=== PATIENT | male | born 1995 | race American Indian/Alaskan Native ===

== ENCOUNTER 2021-01-09 18:44 | Emergency (ER) | payer OTHER, SELFPAY ==
[2021-01-09 23:14] LABS: Basophils # (Auto) 0.1 K/mm3 (0.0-0.1); Basophils % (Auto) 1.4 % (0.0-1.8); Eosinophils # (Auto) 0.1 K/mm3 (0.0-0.4); Eosinophils % (Auto) 1.4 % (0.0-4.3); Hematocrit 39.2 % (35.5-45.6); Hemoglobin 12.6 gm/dl (11.8-15.2); Lymphocytes # (Auto) 1.5 K/mm3 (1.2-5.4); Lymphocytes % (Auto) 33.8 % (13.4-35.0); Mean Corpuscular HGB Conc 32 % (32-34); Mean Corpuscular Volume 85 fl (84-94); Monocytes # (Auto) 0.5 K/mm3 (0.0-0.8); Monocytes % (Auto) 12.4 % (0.0-7.3); Platelet Count 228 K/mm3 (140-440); Red Blood Count 4.64 M/mm3 (3.65-5.03); Red Cell Distribution Width 15.1 % (13.2-15.2)
[2021-01-09 23:31] LABS: BUN/Creatinine Ratio 8; Blood Urea Nitrogen 8 mg/dL (9-20); Calcium 8.9 mg/dL (8.4-10.2); Hemolysis Index 6
[2021-01-10 00:10] LABS: Bilirubin,Urine NEG (Negative); Blood,Urine NEG (Negative); Color,Urine Straw (Yellow); Protein,Urine <15 mg/dL mg/dL (Negative); Urobilinogen,Urine < 2.0 mg/dL (<2.0); WBC,Urine < 1.0 /HPF (0.0-6.0)
[2021-01-10 00:13] LABS: RBC,Urine < 1.0 /HPF (0.0-6.0)
[2021-01-10 00:16] LABS: Amphetamine Screen,Urine PRESUMPTIVE NEGATIVE; Benzodiazepines Screen,Urine PRESUMPTIVE NEGATIVE; Cannabinoid Screen,Urine PRESUMPTIVE POSITIVE; Cocaine Screen,Urine PRESUMPTIVE NEGATIVE; Methadone Screen,Urine PRESUMPTIVE NEGATIVE; Opiate Screen,Urine PRESUMPTIVE NEGATIVE
--- NOTE | 2021-01-10 01:05 | Emergency Department Report ---
ED Psych HPI - General Chief Complaint: Psych Stated Complaint: EVALUATION Time Seen by Provider: 01/10/21 00:21 Source: patient Mode of arrival: Ambulatory - History of Present Illness Initial Comments: Patient is 25 years old male with unknown past medical or psychiatric history. Patient presented to the ER for mental health evaluation. Patient said that he is hearing voices. When I asked him what the voices asking her to do, patient replied that I asked me to kill you. Patient is doing a bizarre movement stating that his brain. Patient avoid looking at the examiner. Patient is in acute psychosis. MD Complaint: other Associated Symptoms: denies other symptoms Treatments Prior to Arrival: none - Related Data Home Medications Medication Instructions Recorded Confirmed Last Taken No Known Home Medications [No 01/11/21 01/11/21 Unknown Reported Home Medications] Allergies Allergy/AdvReac Type Severity Reaction Status Date / Time No Known Allergies Allergy Unverified 01/09/21 22:30 ED Review of Systems ROS: Stated complaint: EVALUATION Other details as noted in HPI Comment: All other systems reviewed and negative Constitutional: denies: chills, fever Respiratory: denies: cough, shortness of breath Gastrointestinal: denies: abdominal pain, nausea, vomiting Musculoskeletal: denies: back pain Neurological: denies: headache, weakness, numbness, paresthesias, confusion Psychiatric: auditory hallucinations. denies: homicidal thoughts, suicidal thoughts ED Past Medical Hx - Past Medical History Hx Psychiatric Treatment: Yes (schizophrenia) - Social History Smoking Status: Never Smoker - Medications Home Medications: Home Medications Medication Instructions Recorded Confirmed Last Taken Type No Known Home Medications [No 01/11/21 01/11/21 Unknown History Reported Home Medications] ED Physical Exam - General Limitations: No Limitations General appearance: alert, in no apparent distress - Head Head exam: Present: atraumatic, normocephalic, normal inspection - Eye Eye exam: Present: normal appearance - ENT ENT exam: Present: normal exam, normal orophraynx, mucous membranes moist - Neck Neck exam: Present: normal inspection, full ROM. Absent: tenderness, meningis mus - Respiratory Respiratory exam: Present: normal lung sounds bilaterally - Cardiovascular Cardiovascular Exam: Present: regular rate, normal rhythm, normal heart sounds - GI/Abdominal GI/Abdominal exam: Present: soft, normal bowel sounds. Absent: distended, tenderness, guarding, rebound, rigid, organomegaly, mass, bruit, pulsatile mass, hernia - Extremities Exam Extremities exam: Present: normal inspection, full ROM, normal capillary refill - Back Exam Back exam: Present: normal inspection, full ROM. Absent: CVA tenderness (R), CVA tenderness (L) - Neurological Exam Neurological exam: Present: alert, oriented X3, CN II-XII intact, normal gait, reflexes normal. Absent: motor sensory deficit - Psychiatric Psychiatric exam: Present: normal mood - Skin Skin exam: Present: warm, intact, normal color ED Course Vital Signs 01/09/21 01/10/21 01/10/21 22:31 02:11 02:59 Temperature 99.1 F 98.8 F Pulse Rate 98 H 104 H Respiratory 16 18 18 Rate Blood Pressure 117/67 Blood Pressure 108/56 [Left] O2 Sat by Pulse 98 98 98 Oximetry 01/10/21 01/11/21 01/11/21 09:47 05:34 07:44 Temperature 98.6 F 98.3 F Pulse Rate 80 80 Respiratory 20 18 20 Rate Blood Pressure Blood Pressure 129/82 120/73 [Left] O2 Sat by Pulse 97 98 98 Oximetry 01/11/21 01/11/21 01/12/21 08:13 19:50 08:14 Temperature 98.0 F 97.8 F Pulse Rate 70 67 Respiratory 20 18 20 Rate Blood Pressure Blood Pressure 111/70 114/59 [Left] O2 Sat by Pulse 98 100 98 Oximetry ED Medical Decision Making - Lab Data Result diagrams: 01/09/21 22:40 01/09/21 22:40 Critical care attestation.: If time is entered above; I have spent that time in minutes in the direct care of this critically ill patient, excluding procedure time. ED Disposition Clinical Impression: Acute psychosis Disposition: DC/TX-70 ANOTHER TYPE HLTHCARE Is pt being admited?: No Condition: Stable Referrals: PRIMARY CARE, [Primary Care Provider] - 3-5 Days
[2021-01-10] MEDS ORDERED: ZIPRASIDONE MESYLATE 20 MG VIAL IM ONE (01:42)
[2021-01-10] MEDS ORDERED: WATER FOR INJ Sterile (PF) 10 ML ONE (01:55)
[2021-01-10] MEDS ORDERED: diphenhydrAMINE 25 MG CAP PO PRN (11:22)
[2021-01-10] MEDS ORDERED: LORazepam 2 MG/ML VIAL IM PRN (11:22)
[2021-01-10] MEDS ORDERED: ACETAMINOPHEN 325 MG TAB PO PRN (11:22)
--- NOTE | 2021-01-10 11:24 | Event Note ---
Date: 01/10/21 The patient was evaluated in the emergency department for symptoms described in the history of present illness. He/she was evaluated in the context of the global COVID-19 pandemic, which necessitated consideration that the patient might be at risk for infection with the virus that causes COVID-19. Institutional protocols and algorithms that pertain to the evaluation of patients at risk for COVID-19 are in a state of rapid change based on information released by regulatory bodies including the CDC and federal and state organizations. These policies and algorithms were followed during the patient's care in the emergency department. Please note that these policies, procedures and recommendations changed on a rapid basis. Laboratory studies, vital signs, nursing and ER documentation reviewed and appreciated. Patient standing comfortably in room 13, in no acute distress. Awaiting psychiatric recommendations. Vital Signs 01/09/21 01/10/21 01/10/21 22:31 02:11 02:59 Temperature 99.1 F 98.8 F Pulse Rate 98 H 104 H Respiratory 16 18 18 Rate Blood Pressure 117/67 Blood Pressure 108/56 [Left] O2 Sat by Pulse 98 98 98 Oximetry 01/10/21 09:47 Temperature 98.6 F Pulse Rate 80 Respiratory 20 Rate Blood Pressure Blood Pressure 129/82 [Left] O2 Sat by Pulse 97 Oximetry Lab Results 01/09/21 01/09/21 01/09/21 Range/Units 22:40 22:40 22:40 WBC (4.5-11.0) K/mm3 RBC (3.65-5.03) M/mm3 Hgb (11.8-15.2) gm/dl Hct (35.5-45.6) % MCV (84-94) fl MCH (28-32) pg MCHC (32-34) % RDW (13.2-15.2) % Plt Count (140-440) K/mm3 Lymph % (Auto) (13.4-35.0) % [place] % (Auto) (0.0-7.3) % Eos % (Auto) (0.0-4.3) % Baso % (Auto) (0.0-1.8) % Lymph # (Auto) (1.2-5.4) K/mm3 [place] # (Auto) (0.0-0.8) K/mm3 Eos # (Auto) (0.0-0.4) K/mm3 Baso # (Auto) (0.0-0.1) K/mm3 Seg Neutrophils % (40.0-70.0) % Seg Neutrophils # (1.8-7.7) K/mm3 Sodium 138 (137-145) mmol/L Potassium 4.2 (3.6-5.0) mmol/L Chloride 101.7 (98-107) mmol/L Carbon Dioxide 26 (22-30) mmol/L Anion Gap 15 mmol/L BUN 8 L (9-20) mg/dL Creatinine 1.0 (0.8-1.3) mg/dL Estimated GFR > 60 ml/min BUN/Creatinine Ratio 8 % Glucose 96 (75-100) mg/dL Calcium 8.9 (8.4-10.2) mg/dL Urine Color (Yellow) Urine Turbidity (Clear) Urine pH (5.0-7.0) Ur Specific [place] (1.003-1.030) Urine Protein (Negative) mg/dL Urine Glucose (UA) (Negative) mg/dL Urine Ketones (Negative) mg/dL Urine Blood (Negative) Urine Nitrite (Negative) Urine Bilirubin (Negative) Urine Urobilinogen (<2.0) mg/dL Ur Leukocyte Esterase (Negative) Urine WBC (Auto) (0.0-6.0) /HPF Urine RBC (Auto) (0.0-6.0) /HPF U Epithel Cells (Auto) (0-13.0) /HPF Salicylates < 0.3 L (2.8-20.0) mg/dL Urine Opiates Screen Urine Methadone Screen Acetaminophen 5.0 L (10.0-30.0) ug/mL Ur Barbiturates Screen Ur Phencyclidine Scrn Ur Amphetamines Screen U Benzodiazepines Scrn Urine Cocaine Screen U Marijuana (THC) Screen Drugs of Abuse Note Plasma/Serum Alcohol (0-0.07) % 01/09/21 01/09/21 01/09/21 Range/Units 22:40 22:40 Unknown WBC 4.4 L (4.5-11.0) K/mm3 RBC 4.64 (3.65-5.03) M/mm3 Hgb 12.6 (11.8-15.2) gm/dl Hct 39.2 (35.5-45.6) % MCV 85 (84-94) fl MCH 27 L (28-32) pg MCHC 32 (32-34) % RDW 15.1 (13.2-15.2) % Plt Count 228 (140-440) K/mm3 Lymph % (Auto) 33.8 (13.4-35.0) % Stan[place] % (Auto) 12.4 H (0.0-7.3) % Eos % (Auto) 1.4 (0.0-4.3) % Baso % (Auto) 1.4 (0.0-1.8) % Lymph # (Auto) 1.5 (1.2-5.4) K/mm3 Stan[place] # (Auto) 0.5 (0.0-0.8) K/mm3 Eos # (Auto) 0.1 (0.0-0.4) K/mm3 Baso # (Auto) 0.1 (0.0-0.1) K/mm3 Seg Neutrophils % 51.0 (40.0-70.0) % Seg Neutrophils # 2.2 (1.8-7.7) K/mm3 Sodium (137-145) mmol/L Potassium (3.6-5.0) mmol/L Chloride (98-107) mmol/L Carbon Dioxide (22-30) mmol/L Anion Gap mmol/L BUN (9-20) mg/dL Creatinine (0.8-1.3) mg/dL Estimated GFR ml/min BUN/Creatinine Ratio % Glucose (75-100) mg/dL Calcium (8.4-10.2) mg/dL Urine Color Straw (Yellow) Urine Turbidity Clear (Clear) Urine pH 7.0 (5.0-7.0) Ur Specific [place] 1.006 (1.003-1.030) Urine Protein <15 mg/dl (Negative) mg/dL Urine Glucose (UA) Neg (Negative) mg/dL Urine Ketones Neg (Negative) mg/dL Urine Blood Neg (Negative) Urine Nitrite Neg (Negative) Urine Bilirubin Neg (Negative) Urine Urobilinogen < 2.0 (<2.0) mg/dL Ur Leukocyte Esterase Neg (Negative) Urine WBC (Auto) < 1.0 (0.0-6.0) /HPF Urine RBC (Auto) < 1.0 (0.0-6.0) /HPF U Epithel Cells (Auto) < 1.0 (0-13.0) /HPF Salicylates (2.8-20.0) mg/dL Urine Opiates Screen Urine Methadone Screen Acetaminophen (10.0-30.0) ug/mL Ur Barbiturates Screen Ur Phencyclidine Scrn Ur Amphetamines Screen U Benzodiazepines Scrn Urine Cocaine Screen U Marijuana (THC) Screen Drugs of Abuse Note Plasma/Serum Alcohol < 0.01 (0-0.07) % 01/09/21 Range/Units Unknown WBC (4.5-11.0) K/mm3 RBC (3.65-5.03) M/mm3 Hgb (11.8-15.2) gm/dl Hct (35.5-45.6) % MCV (84-94) fl MCH (28-32) pg MCHC (32-34) % RDW (13.2-15.2) % Plt Count (140-440) K/mm3 Lymph % (Auto) (13.4-35.0) % Stan[place] % (Auto) (0.0-7.3) % Eos % (Auto) (0.0-4.3) % Baso % (Auto) (0.0-1.8) % Lymph # (Auto) (1.2-5.4) K/mm3 [place] # (Auto) (0.0-0.8) K/mm3 Eos # (Auto) (0.0-0.4) K/mm3 Baso # (Auto) (0.0-0.1) K/mm3 Seg Neutrophils % (40.0-70.0) % Seg Neutrophils # (1.8-7.7) K/mm3 Sodium (137-145) mmol/L Potassium (3.6-5.0) mmol/L Chloride (98-107) mmol/L Carbon Dioxide (22-30) mmol/L Anion Gap mmol/L BUN (9-20) mg/dL Creatinine (0.8-1.3) mg/dL Estimated GFR ml/min BUN/Creatinine Ratio % Glucose (75-100) mg/dL Calcium (8.4-10.2) mg/dL Urine Color (Yellow) Urine Turbidity (Clear) Urine pH (5.0-7.0) Ur Specific [place] (1.003-1.030) Urine Protein (Negative) mg/dL Urine Glucose (UA) (Negative) mg/dL Urine Ketones (Negative) mg/dL Urine Blood (Negative) Urine Nitrite (Negative) Urine Bilirubin (Negative) Urine Urobilinogen (<2.0) mg/dL Ur Leukocyte Esterase (Negative) Urine WBC (Auto) (0.0-6.0) /HPF Urine RBC (Auto) (0.0-6.0) /HPF U Epithel Cells (Auto) (0-13.0) /HPF Salicylates (2.8-20.0) mg/dL Urine Opiates Screen Presumptive negative Urine Methadone Screen Presumptive negative Acetaminophen (10.0-30.0) ug/mL Ur Barbiturates Screen Presumptive negative Ur Phencyclidine Scrn Presumptive negative Ur Amphetamines Screen Presumptive negative U Benzodiazepines Scrn Presumptive negative Urine Cocaine Screen Presumptive negative U Marijuana (THC) Screen Presumptive positive Drugs of Abuse Note Disclamer Plasma/Serum Alcohol (0-0.07) %
--- NOTE | 2021-01-10 11:48 | Consultation ---
History of Present Illness - Reason for Consult Consult date: 01/10/21 Reason for consult: MHE Requesting physician: DAWSON AMARO - History of Present Psychiatric Illness Per ED Provider: Patient is 25 years old male with unknown past medical or psychiatric history. Patient presented to the ER for mental health evaluation. Patient said that he is hearing voices. When I asked him what the voices asking her to do, patient replied that I asked me to kill you. Patient is doing a bizarre movement stating that his brain. Patient avoid looking at the examiner. Patient is in acute psychosis. PSYCH HPI Patient is a 25-year-old -[place] male with no known psychiatric history , past medical history who presented to the ED for Medicare after evaluation stating that he is hearing voices. Patient seen in seclusion, due to safety reasons. Patient reported coming here by ambulance because his uncle called them that he is suffering. When patient was asked what he suffered from patient set himself and also you need to know. Patient states that he will be here until his ready to go and that has nothing to do with evaluation. He is denying prior psych history or drug use. PAST PSYCHIATRIC HISTORY Diagnoses:n/a Suicide attempts or Self-harm behavior: n/a Prior psychiatric hospitalizations: n/a Substance Abuse history: n/a Previous psychiatric medications tried: n/a Outpatient treatment: n/a PAST MEDICAL HISTORY: n/a Family Psychiatric History: None reported or documented SOCIAL HISTORY Marital Status: n/a Living Arrangements: homeless Employment Status: unemployed Access to guns/weapons: n/a Education:high school diploma History of Abuse: n/a Legal History: n/a REVIEW OF SYSTEMS ROS cannot be reliably obtained from the patient due to his mental state MENTAL STATUS EXAMINATION General Appearance and Behavior: Age appropriate, good hygiene, not wearing appropriate clothes, good eye contact, cooperative polite with questioning. Cooperation: Participating/engaged Psychomotor Behavior: Psychomotor agitation Mood: Good Affect and affective range: euthymic, euphoric Thought Process:Circumstantial, Illogical, Thought Content: Flight of ideas, Illogical, Grandiose, Speech: pressured, loud volume at times Intellectual Functioning: Average Suicidal Ideation: Denies SI Homicidal Ideation: Denies HIl Impulse Control: Impaired Insight and Judgment: Limited insight and judgment Memory: Normal, Attention: Divided attention impaired Orientation: Alert, oriented, Assessment and Plan - Psychiatric problem (1) Unspecified episodic mood disorder Current Visit: Yes Status: Acute F39 Treatment Plan MEDICATIONS: Risks, benefits and alternatives of medications discussed with the patient, questions answered and consent obtained from patient. PSYCHOTHERAPY: Supportive psychotherapy provided MEDICAL: Per primary team DELIRIUM PRECAUTIONS: Please re-orient patient frequently, keep lights on during the day, and minimize benzodiazepines and opiates as these medications could worsen patient's confusion. STUNT MAN: DISPOSITION: Do Recommend acute inpatient psychiatric hospitalization at this time. Case discussed with Dr. Chamorro who agrees with current disposition LEGAL STATUS: 1013 FOLLOW-UP: Will follow Thank you for the consult. Please contact with any questions and/or concerns. Medications and Allergies Allergies Allergy/AdvReac Type Severity Reaction Status Date / Time No Known Allergies Allergy Unverified 01/09/21 22:30 Active Meds: Active Medications Acetaminophen (Acetaminophen 325 Mg Tab) 650 mg PO Q6HR PRN PRN Reason: PAIN Diphenhydramine HCl (Diphenhydramine 25 Mg Cap) 50 mg PO QHS PRN PRN Reason: Insomnia Lorazepam (Lorazepam 2 Mg/Ml Vial) 2 mg IM Q4HR PRN PRN Reason: Agitation Mental Status Exam - Vital signs Last Vital Signs Temp 98.6 F 01/10/21 09:47 Pulse 80 01/10/21 09:47 Resp 20 01/10/21 09:47 BP 129/82 01/10/21 09:47 Pulse Ox 97 01/10/21 09:47 Results Result Diagrams: 01/09/21 22:40 01/09/21 22:40 Abnormal lab results 01/09/21 01/09/21 01/09/21 Range/Units 22:40 22:40 22:40 WBC (4.5-11.0) K/mm3 MCH (28-32) pg [place] % (Auto) (0.0-7.3) % BUN 8 L (9-20) mg/dL Salicylates < 0.3 L (2.8-20.0) mg/dL Acetaminophen 5.0 L (10.0-30.0) ug/mL 01/09/21 Range/Units 22:40 WBC 4.4 L (4.5-11.0) K/mm3 MCH 27 L (28-32) pg [place] % (Auto) 12.4 H (0.0-7.3) % BUN (9-20) mg/dL Salicylates (2.8-20.0) mg/dL Acetaminophen (10.0-30.0) ug/mL All other labs normal. Assessment and Plan - Psychiatric problem (1) Unspecified episodic mood disorder Current Visit: Yes Status: Acute
--- NOTE | 2021-01-11 18:39 | Event Note ---
S: " I did not get my psych meds." O: Patient is alert oriented x4, vital signs are stable A: Acute psychosis P: Psychiatry team recommended inpatient stabilization, patient is medically clear for psychiatric care. I have reviewed labs obtained. Covid PCR test is negative
[2021-01-12 08:15] VITALS: BP 114/59
--- NOTE | 2021-01-12 10:19 | Progress Note ---
Subjective - Reason for Consult Consult date: 01/12/21 Reason for consult: psychosis - Chief Complaint Chief complaint: The patient was seen today, he is irritable and reluctant to speak with me. He does after several attempts. His thoughts are a little disorganized. He points and tells me that his "psychiatrists are behind the glass." The patient verbalizes being depressed and seeing "devil dogs." When asked was he on any meds, he says "I don't know." He verbalizes using "meth." When asking the patient about SI/HI, he says "I don't know." He then says "a little." PAST PSYCHIATRIC HISTORY Diagnoses:n/a Suicide attempts or Self-harm behavior: n/a Prior psychiatric hospitalizations: n/a Substance Abuse history: n/a Previous psychiatric medications tried: n/a Outpatient treatment: n/a PAST MEDICAL HISTORY: n/a Family Psychiatric History: None reported or documented SOCIAL HISTORY Marital Status: n/a Living Arrangements: homeless Employment Status: unemployed Access to guns/weapons: n/a Education:high school diploma History of Abuse: n/a Legal History: n/a REVIEW OF SYSTEMS ROS cannot be reliably obtained from the patient due to his mental state MENTAL STATUS EXAMINATION General Appearance and Behavior: Age appropriate, good hygiene, not wearing appropriate clothes, good eye contact, cooperative polite with questioning. Cooperation: Participating/engaged Psychomotor Behavior: Psychomotor agitation Mood: Good Affect and affective range: euthymic, euphoric Thought Process:Circumstantial, Illogical, Thought Content: Flight of ideas, Illogical, Speech: pressured, loud volume at times Intellectual Functioning: Average Suicidal Ideation: "a little" Homicidal Ideation: Denies HI Impulse Control: Impaired Insight and Judgment: Limited insight and judgment Memory: Normal, Attention: Divided attention impaired Orientation: Alert, oriented, Assessment and Plan (1)Acute Psychosis Current Visit: Yes Status: Acute Treatment Plan Start Risperidone 0.25mg po BID Start Trazodone 50mg po qhs Risks, benefits and alternatives of medications discussed with the patient, questions answered and consent obtained from patient. PSYCHOTHERAPY: Supportive psychotherapy provided MEDICAL: Per primary team DELIRIUM PRECAUTIONS: Please re-orient patient frequently, keep lights on during the day, and minimize benzodiazepines and opiates as these medications could worsen patient's confusion. NATURAL FABRICATOR: DISPOSITION: Recommend acute inpatient psychiatric hospitalization at this time. Case discussed with Dr. Chamorro who agrees with current disposition LEGAL STATUS: 1013 FOLLOW-UP: Will follow Thank you for the consult. Please contact with any questions and/or concerns. Mental Status Exam - Vital signs Last Vital Signs Temp 97.8 F 01/12/21 08:14 Pulse 67 01/12/21 08:14 Resp 20 01/12/21 08:14 BP 114/59 01/12/21 08:14 Pulse Ox 98 01/12/21 08:14
[2021-01-12] MEDS ORDERED: risperiDONE 0.25 MG TAB PO SCH (11:00)
--- NOTE | 2021-01-12 16:50 | Event Note ---
Date: 01/12/21 I been asked to 1013 this patient with an acute psychosis. According to the record, the patient has no known psychiatric history. I think would be prudent therefore to do a CT scan of his head prior to transfer. This has been ordered. 1013 will be executed.
--- NOTE | 2021-01-12 17:59 | Cat Scan Report ---
CT BRAIN: 01/12/2021 INDICATION / CLINICAL INFORMATION: AMS. COMPARISON: None available. FINDINGS: BRAIN/INTRACRANIAL STRUCTURES: Unenhanced CT images of the brain demonstrate no evidence of acute int racranial abnormality. Ventricles and sulci are normal in size and shape. There is no evidence of acute ischemic injury, hemorrhage, or mass. There are no abnormal extra-axial fluid collections. There is a focal area of scalp swelling or scar formation in the high right parietal region. EXTRACRANIAL STRUCTURES: Unremarkable. IMPRESSION: No acute intracranial abnormality. All CT scans at this location are performed using dose reduction to ALARA by means of automated expos ure control. Signer Name: Duane Ng MD Signed: 01/12/2021 5:55 PM Workstation Name: [id number]
[2021-01-12] MEDS ORDERED: traZODone 50 MG TAB PO SCH (22:00)
== END 2021-01-12 19:55 | disposition other institution (70) ==
LOC: EEVIPCON 18:44 → ED 18:44
DX: R44.0 Auditory hallucinations (principal); Z20.822 Contact with and (suspected) exposure to COVID-19
CPT/HCPCS: 36415; 70450; 80048; 80307; 81001; 85025; 96372; 99285; J3486; U0003; 80320; G0480